=== PATIENT | male | born 1950 | race Caucasian/White ===

== ENCOUNTER 2016-10-15 06:25 | Inpatient (IN) | payer MEDICARE, MEDICAID ==
[~2016-10-15] VITALS: Ht 162.6 cm; Wt 70.3 kg
--- NOTE | 2016-10-15 06:35 | NUR ---
TO BED 5 A 66 YO MALE BIBRA 60 FOR SEIZURE WITNESSED BY , PER RA STATES NOTED PT MOUTH LOCKED, BODY TWITCHING. - N/V OR HEADACHE ON ARRIVAL. PATIENT IS AAOX2, NOTED WITH CONFUSION AND FORGETFULNESS. VSS. BREATHING EVEN AND UNLABORED. DENIES ANY PAIN OR DISCOMFORT. REORIENTATION DONE. SEIZURE PRECAUTIONS INITIATED. MAINTAINED SAFETY. AWAITING FOR ER MD GOODSON.
--- NOTE | 2016-10-15 06:44 | NUR ---
PERFUME COMPOUNDER AT BEDSIDE TO DRAW BLOOD.
[2016-10-15] MEDS ORDERED: IV SET PRIMARY 1 EA INFUS.SET MC ONE (06:48)
[2016-10-15] MEDS ORDERED: IV NS 0.9% 1,000 ML ONE (06:48)
[2016-10-15] MEDS ORDERED: IV NS 0.9% 1,000 ML BAG IV ONE (07:00)
[2016-10-15 07:02] LABS: BASOPHILS % (AUTO) 0.4 % (0.0-2.0); EOSINOPHILS # (AUTO) 0.1 /CMM (0.0-0.7); EOSINOPHILS % (AUTO) 1.5 % (0.0-6.0); HEMATOCRIT 48 % (39-51); HEMOGLOBIN 16.9 g/dL (13.5-17.5); LYMPHOCYTES # (AUTO) 1.1 /CMM (0.8-4.8); LYMPHOCYTES % (AUTO) 20.4 % (20.0-44.0); MEAN CORPUSCULAR HEMOGLOBIN 33 PG (26.0-33.0); MEAN CORPUSCULAR HGB CONC 35 g/dl (31.0-36.0); MEAN CORPUSCULAR VOLUME 96 fL (80-96); MONOCYTES # (AUTO) 0.5 /CMM (0.1-1.30); MONOCYTES % (AUTO) 8.7 % (2.0-12.0); NEUTROPHILS # (AUTO) 3.6 /CMM (1.8-8.9); PLATELET COUNT (AUTO) 107 /CMM (150-450); RDW COEFFICIENT OF VARIATION 13.8 (11.5-15.0); RED BLOOD CELL COUNT(AUTO) 5.05 MIL/uL (4.5-6.0); WHITE BLOOD COUNT (AUTO) 5.2 K/uL (4.3-11.0)
[2016-10-15 07:18] LABS: ALANINE AMINOTRANSFERASE 55 U/L (12-78); ALKALINE PHOSPHATASE 48 U/L (46-116); ASPARTATE AMINOTRANSFERASE 64 U/L (15-37); BILIRUBIN,DIRECT 0.2 mg/dL (0.0-0.2); BILIRUBIN,TOTAL 0.9 mg/dL (0.2-1.0); CALCIUM, SERUM 8.9 mg/dL (8.5-10.1); CARBON DIOXIDE 27 mmol/L (21-32); CHLORIDE 101 mmol/L (98-107); GFR 74 mL/min (>60); GLUCOSE 203 mg/dL (74-106); POTASSIUM 3.9 mmol/L (3.5-5.1); SODIUM SERUM 140 mmol/L (136-145); TOTAL PROTEIN, SERUM 7.6 g/dL (6.4-8.2); UREA NITROGEN, BLOOD 9 mg/dL (7-18)
[2016-10-15 07:19] LABS: PROTHROMBIN TIME 10.7 SECS (9.5-12.7)
[2016-10-15 07:20] LABS: ALCOHOL, BLOOD < 3 mg/dL (0-0)
--- NOTE | 2016-10-15 07:30 | NUR ---
RECEIVED REPORT FROM LUIS FOR JULIANA
--- NOTE | 2016-10-15 07:30 | NUR ---
ENDORSED CARE TO ARNAV SHORT.
--- NOTE | 2016-10-15 07:58 | NUR ---
URINE SAMPLE COLLECTED SENT TO LAB
[2016-10-15 08:06] LABS: APPEARANCE,URINE CLEAR (CLEAR); BILIRUBIN,URINE NEGATIVE (NEGATIVE); BLOOD, URINE TRACE-INTA Ery/uL (NEGATIVE); COLOR,URINE YELLOW (YELLOW); KETONES,URINE NEGATIVE (NEGATIVE); LEUKOCYTE ESTERASE ,URINE NEGATIVE (NEGATIVE); NITRITE, URINE NEGATIVE (NEGATIVE); PROTEIN,URINE 1+ mg/dl (NEGATIVE); UGLUCOSE NEGATIVE (NEGATIVE); UROBILINOGEN,URINE 0.2 EU/dL (0.2)
[2016-10-15 08:16] LABS: ADD URINE CULTURE NO; BACTERIA,URINE Rare /HPF (None Seen); MUCUS,URINE Few /LPF (None Seen); SQUAMOUS EPITHELIAL CELL,UR Few /HPF (None Seen); WBC,URINE 0-3 /HPF (0-3)
[2016-10-15] MEDS ORDERED: LORAZEPAM INJ 2 MG/ML VIAL IV ONE (08:30)
[2016-10-15] MEDS ORDERED: Thiamine 100 MG in IV D5W 50 ML IV SCH (08:30)
--- NOTE | 2016-10-15 08:30 | NUR ---
[facility] paged, dr. coreas nurse practitioner manager [phone]
[2016-10-15] MEDS ORDERED: IV SET PRIMARY PUMP SET 1 EA INFUS.SET MC ONE ×2 (08:41→12:51)
[2016-10-15] MEDS ORDERED: AMLO10TA2 PO (08:41)
[2016-10-15] MEDS ORDERED: LORAZEPAM INJ 2 MG/ML VIAL ONE (08:41)
--- NOTE | 2016-10-15 09:01 | NUR ---
GAVE REPORT TO BRIDGETTE SHORTBINDER TECHNICIAN DX SEIZURE. TRANSFER VIA ACLS PROTOCOL.
[2016-10-15 09:52] VITALS: BP 162/91
--- NOTE | 2016-10-15 09:53 | NUR ---
RN ADMITTING NOTES RECEIVED REPORT FROM CARE TAKER, ARNAV. PATIENT ARRIVED TO UNIT AT 9:25AM. ALERT AND ORIENTED TO NAME, TIME AND PLACE. NO SIGNS AND SYMPTOMS OF DISTRESS. DENIED PAIN. IV SITE IS INTACT AND PATENT. SIDE RAILS COVERED WITH BLANKET FOR SEIZURE PRECAUTION. VITAL SIGNS WERE DOCUMENTED. NO PERSONAL BELONGING AT TIME OF ADMISSION.
[2016-10-15] MEDS ORDERED: LORAZEPAM INJ 2 MG/ML VIAL IV PRN (12:30)
[2016-10-15] MEDS ORDERED: ACETAMINOPHEN 325 MG TABLET PO PRN (12:30)
[2016-10-15] MEDS ORDERED: HYDROCODONE/APAP 5/325MG 1 EACH TABLET PO PRN (12:30)
[2016-10-15] MEDS ORDERED: ZOLPIDEM TARTRATE 5 MG TABLET PO PRN (12:30)
[2016-10-15] MEDS ORDERED: Z GUARD REMEDY 2 OZ OINT TP PRN (12:30)
[2016-10-15] MEDS ORDERED: ONDANSETRON HCL/PF 4 MG/2 ML VIAL IVP PRN (12:30)
[2016-10-15] MEDS ORDERED: MAG HYDROX/AL HYDROX/SIMETH 30 ML UDC PO PRN (12:30)
[2016-10-15] MEDS ORDERED: MAGNESIUM HYDROXIDE 30 ML UDC PO PRN (12:30)
[2016-10-15] MEDS ORDERED: SECONDARY IV SET 1 EA INFUS.SET MC ONE (12:52)
[2016-10-15] MEDS ORDERED: SET RED CAP 1 EA INFUS.SET MC ONE (12:52)
[2016-10-15] MEDS: IV NS 0.9% 1,000 ML IV PRN (13:20)
[2016-10-15] MEDS: THIAMINE HCL 100 MG TABLET PO SCH (13:20)
[2016-10-15] MEDS: FOLIC ACID 1 MG TABLET PO SCH (13:20)
[2016-10-15] MEDS: ENOXAPARIN SODIUM 40 MG/0.4 ML DISP.SYRIN SQ SCH (13:26)
[2016-10-15] MEDS: LEVOFLOXACIN 500 MG /D5W 100ML 500 MG in PREMIX 1 EA IV SCH (14:03)
[2016-10-15] MEDS: CHLORDIAZEPOXIDE HCL 25 MG CAPSULE PO SCH ×2 (14:29→17:17)
[2016-10-15 16:00] VITALS: BP 159/82
--- NOTE | 2016-10-15 18:32 | NUR ---
RN CLOSING NOTES PATIENT IS ALERT AND ORIENTED TO NAME, PLACE, AND TIME. NO SIGNS AND SYMPTOMS OF DISTRESS. NO SEIZURE DURING MY SHIFT. DENIED PAIN. IV SITE IS INTACT AND PATENT, CURRENTLY RUNNING NS @75ML/HR. ECHO COMPLETED TODAY AT EF 60%. WILL ENDORSE TO CAR WASHER NURSE.
--- NOTE | 2016-10-15 19:25 | NUR ---
TELERN FULLY AWAKE FAMILY JUST LEFT. DENIES ANY DISCOMFORTS FOR NOW. STATES NO NEEDS FOR NOW AND WILL CALL IF NEEDED. NEEDS CONSTANT OBSERVATION FOR ALCOHOL WITHDRAWAL. SAFETY PRECAUTIONS EMPHASIZED, APPEARS TO UNDERSTAND. SR ON THE MONITOR, CONTINUED MONITORING
[2016-10-15 20:00] VITALS: BP 164/84
[2016-10-15] MEDS: hydrALAZINE HCL 25 MG TABLET PO PRN (21:03)
[2016-10-16] VITALS: BP 154/84
[2016-10-16] MEDS: IV NS 0.9% 1,000 ML IV PRN ×2 (02:51→16:46)
--- NOTE | 2016-10-16 03:09 | NUR ---
TELERN SR ON THE MONITOR, PRESENT IVF INFUSING WELL. NO NEEDS MADE CONTINUED MONITORING.
[2016-10-16 04:00] VITALS: BP 169/84
[2016-10-16] MEDS ORDERED: hydrALAZINE HCL 25 MG TABLET ONE (05:37)
[2016-10-16 06:39] LABS: BASOPHILS % (AUTO) 0.3 % (0.0-2.0); EOSINOPHILS # (AUTO) 0.1 /CMM (0.0-0.7); EOSINOPHILS % (AUTO) 0.8 % (0.0-6.0); HEMATOCRIT 41 % (39-51); HEMOGLOBIN 14.3 g/dL (13.5-17.5); LYMPHOCYTES # (AUTO) 0.9 /CMM (0.8-4.8); LYMPHOCYTES % (AUTO) 14.4 % (20.0-44.0); MEAN CORPUSCULAR HEMOGLOBIN 34 PG (26.0-33.0); MEAN CORPUSCULAR HGB CONC 35 g/dl (31.0-36.0); MEAN CORPUSCULAR VOLUME 96 fL (80-96); MONOCYTES # (AUTO) 0.7 /CMM (0.1-1.30); MONOCYTES % (AUTO) 10.5 % (2.0-12.0); NEUTROPHILS # (AUTO) 4.8 /CMM (1.8-8.9); PLATELET COUNT (AUTO) 79 /CMM (150-450); RDW COEFFICIENT OF VARIATION 13.8 (11.5-15.0); RED BLOOD CELL COUNT(AUTO) 4.23 MIL/uL (4.5-6.0); WHITE BLOOD COUNT (AUTO) 6.5 K/uL (4.3-11.0)
--- NOTE | 2016-10-16 06:40 | NUR ---
TELERN REMAINS SR ON THE MONITOR, NO OTHER NEEDS MADE.
[2016-10-16] MEDS: hydrALAZINE HCL 25 MG TABLET PO PRN (06:43)
[2016-10-16 06:57] LABS: CALCIUM, SERUM 8.5 mg/dL (8.5-10.1); CREATININE 0.7 mg/dL (0.6-1.3); MAGNESIUM 1.8 mg/dL (1.8-2.4); PHOSPHORUS 3.2 mg/dL (2.5-4.9); POTASSIUM 3.5 mmol/L (3.5-5.1)
--- NOTE | 2016-10-16 07:26 | NUR ---
RN OPEN NOTES RECEIVED REPORT FROM APPLIANCE MECHANIC NURSE. PATIENT IS IN BED, SLEEPING , AWAKEN FOR CALLING HIS NAME. NO SIGNS AND SYMPTOMS OF DISTRESS.IV SITE IS INTACT AND PATENT. WILL CONTINUE TO MONITOR AND ASSESS PATIENT THROUGHOUT MY SHIFT.
--- NOTE | 2016-10-16 07:50 | NUR ---
SPOKE WITH DR HOWARD REGARDING LOW PLATELET COUNT. AGREED TO HOLD LOVENOX
[2016-10-16] MEDS: CHLORDIAZEPOXIDE HCL 25 MG CAPSULE PO SCH ×3 (07:55→16:46)
[2016-10-16] MEDS: ENOXAPARIN SODIUM 40 MG/0.4 ML DISP.SYRIN SQ SCH (07:55)
[2016-10-16] MEDS: PANTOPRAZOLE 40 MG TABLET.DR PO SCH (07:55)
[2016-10-16] MEDS: FOLIC ACID 1 MG TABLET PO SCH (07:55)
[2016-10-16] MEDS: THIAMINE HCL 100 MG TABLET PO SCH (07:55)
[2016-10-16] MEDS: AMLODIPINE BESYLATE 10 MG TABLET PO SCH (07:55)
[2016-10-16 08:00] VITALS: BP 163/79
[2016-10-16 08:02] LABS: BAND % (MANUAL) 1 % (0.0-5.0); LYMPHOCYTES % (MANUAL) 17 % (16-48); MONOCYTES % (MANUAL) 10 % (0-11.0); NEUTROPHILS % (MANUAL) 72 (42-76); PLATELET ESTIMATE DECREASED
--- NOTE | 2016-10-16 10:04 | NUR ---
RN NOTES SPOKE TO NI, HIS , OVER THE PHONE
[2016-10-16 12:00] VITALS: BP 159/90
[2016-10-16] MEDS: LEVOFLOXACIN 500 MG /D5W 100ML 500 MG in PREMIX 1 EA IV SCH (12:16)
[2016-10-16 16:00] VITALS: BP 151/82
--- NOTE | 2016-10-16 18:49 | NUR ---
RN CLOSING NOTES PATIENT IS ALERT AND ORIENTED TO NAME, TIME AND PLACE. NO SIGNS AND SYMPTOMS OF DISTRESS. DENIED PAIN. IV SITE IS INTACT AND PATENT, CURRENTLY RUNNING NS @75ML/HR. WILL ENDORSE TO PRE PRESS OPERATOR NURSE.
[2016-10-16 20:00] VITALS: BP 147/90
[2016-10-17] VITALS: BP 149/87
[2016-10-17 04:00] VITALS: BP 139/87
--- NOTE | 2016-10-17 06:23 | NUR ---
SYSTEMS SOFTWARE DESIGNER NOTES AWAKE & RESPONSIVE. NOT IN ANY DISTRESS. NO SOB NOTED. DENIES ANY PAIN OR DISCOMFORT AT THIS TIME. ON TELE SR @ 70 WITH IV-HL PATENT & INTACT. MONITORED ACCORDINGLY. CALL LIGHT WITHIN REACH. BED IN LOWEST POSITION. SR UP X 2 FOR SAFETY. WILL ENDORSE TO NEXT SHIFT.
[2016-10-17 06:29] VITALS: BP 166/92
--- NOTE | 2016-10-17 07:09 | NUR ---
RN OPEN NOTES RECEIVED REPORT FROM AGRICULTURAL SERVICE WORKER NURSE. PATIENT IS IN BED, AWAKE. ALERT AND ORIENTED TO NAME, TIME AND PLACE. NO SIGNS AND SYMPTOMS OF DISTRESS.IV SITE IS INTACT AND PATENT. WILL CONTINUE TO MONITOR AND ASSESS PATIENT THROUGHOUT MY SHIFT.
[2016-10-17 08:00] VITALS: BP 171/93
[2016-10-17 08:39] VITALS: BP 171/93
[2016-10-17] MEDS: PANTOPRAZOLE 40 MG TABLET.DR PO SCH (08:39)
[2016-10-17] MEDS: FOLIC ACID 1 MG TABLET PO SCH (08:39)
[2016-10-17] MEDS: THIAMINE HCL 100 MG TABLET PO SCH (08:39)
[2016-10-17] MEDS: AMLODIPINE BESYLATE 10 MG TABLET PO SCH (08:39)
[2016-10-17] MEDS: ENOXAPARIN SODIUM 40 MG/0.4 ML DISP.SYRIN SQ SCH (08:40)
[2016-10-17] MEDS: CHLORDIAZEPOXIDE HCL 25 MG CAPSULE PO SCH ×2 (08:57→12:19)
[2016-10-17] MEDS: LEVOFLOXACIN 500 MG /D5W 100ML 500 MG in PREMIX 1 EA IV SCH (12:22)
[2016-10-17] MEDS ORDERED: LISI10TA5 PO (13:56)
[2016-10-17] MEDS ORDERED: LEVO250T2 PO (13:56)
[2016-10-17] MEDS ORDERED: CHLO25CA22 PO (13:56)
--- NOTE | 2016-10-17 15:15 | NUR ---
BRAND STRATEGIST NOTES PATIENT DISCHARGE ORDER RECEIVED AND CARRIED OUT. PATIENT VERBALIZED UNDERSTANDING OF DISCHARGE ORDERS. PATIENT HAD NO CONCERNS REGARDING DISCHARGE. PATIENT LEFT WITH ALL PERSONAL BELONGING AND FORM SIGNED. PATIENT RECEIVED PRESCRIPTION AT TIME OF DISCHARGE. NO SIGNS AND SYMPTOMS OF DISTRESS. DENIED PAIN. OV SITE REMOVED. OD BAND REMOVED. PATIENT WAS TRANSPORTED HOME VIA PRIVATE CAR ACCOMPANIED BY HIS . NI. I ESCORTED PATIENT DOWN TO LOBBY.
== END 2016-10-17 14:53 | disposition home or self-care (01) | DRG 896 ==
LOC: ER 06:27 → MED 09:01 → TELE 11:58 → MED 10-17 09:07
PROVIDERS: ADMIT Internal Medicine; ATTEND Internal Medicine
DX: F10.239 Alcohol dependence with withdrawal, unspecified (principal); J69.0 Pneumonitis due to inhalation of food and vomit; G91.2 (Idiopathic) normal pressure hydrocephalus; E78.5 Hyperlipidemia, unspecified; F03.90 Unspecified dementia, unspecified severity, without behavioral disturbance, psychotic disturbance, mood disturbance, and anxiety; I10 Essential (primary) hypertension; Z82.49 Family history of ischemic heart disease and other diseases of the circulatory system; G93.89 Other specified disorders of brain; Z87.891 Personal history of nicotine dependence; G40.909 Epilepsy, unspecified, not intractable, without status epilepticus; Y90.0 Blood alcohol level of less than 20 mg/100 ml
CPT/HCPCS: 36415; 70450-TC; 71010-TC; 80048-TC; 80061-TC; 80076-TC; 81000-TC; 82746; 83735-TC; 84100-TC; 85025-TC; 85730-TC; 87040-TC; 87081-TC; 87086-TC; 93307-TC; A4216; A4606; G0480; J1650; J1956; J2060; J3411; J7030; J7060; Z7610

== ENCOUNTER 2017-04-18 09:30 | Emergency (ER) | payer MEDICARE, MEDICAID ==
[~2017-04-18] VITALS: Ht 167.6 cm; Wt 71.2 kg
[~2017-04-18 09:30] MED LIST: AMLO10TA2 PO; CHLO25CA22 PO; LEVO250T2 PO; LISI10TA5 PO
--- NOTE | 2017-04-18 09:35 | NUR ---
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 PATIENT TOOK 10MG AMLODIPINE 1HR AGO. CURRENT BP IS 154/79. RR IS EVEN AND UNLABORED WITH NAD NOTED. SKIN IS WARM AND DRY. ASSISTED TO HOSPITAL GOWN. PLACED ON MONITOR.
--- NOTE | 2017-04-18 09:43 | NUR ---
DR MACKAY AT BEDSIDE FOR EVALUATION.
[2017-04-18 09:59] VITALS: BP 151/69
--- NOTE | 2017-04-18 09:59 | NUR ---
Patient discharged to home in stable condition. Written and verbal after care instructions given. Patient and family member verbalizes understanding of instruction.
== END 2017-04-18 10:01 | disposition home or self-care (01) ==
LOC: ER 09:32
DX: F41.9 Anxiety disorder, unspecified (principal); F10.10 Alcohol abuse, uncomplicated; I10 Essential (primary) hypertension; F03.90 Unspecified dementia, unspecified severity, without behavioral disturbance, psychotic disturbance, mood disturbance, and anxiety; Z91.14 Patient's other noncompliance with medication regimen
CPT/HCPCS: 99284; A4606; Z7610

== ENCOUNTER 2017-08-22 10:20 | Emergency (ER) | payer MEDICARE, MEDICAID ==
[~2017-08-22] VITALS: Ht 180.3 cm; Wt 64.6 kg
[~2017-08-22 10:20] MED LIST changes: -AMLO10TA2 PO; +AMLO10TA6 PO
--- NOTE | 2017-08-22 10:20 | NUR ---
BB CAREGIVER FOR DIZZINESS SINCE THIS AM, [facility]. PT DENIES CHEST PAIN AND SOB. ALCOHOL CONSUMPTION YESTERDAY. PER CAREGIVER, PT HAS A H/O ALCOHOL INDUCED SZ. NAD. RR EVEN AND UNLABORED. SKIN IS WARM AND NON DIAPHORETIC. PENDING ER MD EVALUATION
[2017-08-22 11:56] LABS: BASOPHILS % (AUTO) 0.7 % (0.0-2.0); EOSINOPHILS % (AUTO) 0.7 % (0.0-6.0); HEMATOCRIT 45 % (39-51); HEMOGLOBIN 15.9 g/dL (13.5-17.5); LYMPHOCYTES # (AUTO) 1.1 /CMM (0.8-4.8); LYMPHOCYTES % (AUTO) 15.5 % (20.0-44.0); MEAN CORPUSCULAR HGB CONC 35 g/dl (31.0-36.0); MEAN CORPUSCULAR VOLUME 89 fL (80-96); MONOCYTES # (AUTO) 0.2 /CMM (0.1-1.30); MONOCYTES % (AUTO) 3.4 % (2.0-12.0); NEUTROPHILS # (AUTO) 5.6 /CMM (1.8-8.9); NEUTROPHILS % (AUTO) 79.7 % (43.0-81.0); RDW COEFFICIENT OF VARIATION 12.6 (11.5-15.0); RED BLOOD CELL COUNT(AUTO) 5.07 MIL/uL (4.5-6.0); WHITE BLOOD COUNT (AUTO) 6.9 K/uL (4.3-11.0)
[2017-08-22 11:59] LABS: PLATELET COUNT (AUTO) 150 /CMM (150-450)
[2017-08-22 12:04] LABS: CALCIUM, SERUM 9.2 mg/dL (8.5-10.1); CARBON DIOXIDE 31 mmol/L (21-32); CHLORIDE 103 mmol/L (98-107); CREATININE 0.7 mg/dL (0.6-1.3); GLUCOSE 118 mg/dL (74-106); POTASSIUM 3.6 mmol/L (3.5-5.1); SODIUM SERUM 143 mmol/L (136-145); UREA NITROGEN, BLOOD 7 mg/dL (7-18)
[2017-08-22 12:11] LABS: TROPONIN I < 0.017 ng/mL (0.00-0.056)
--- NOTE | 2017-08-22 14:16 | NUR ---
Patient discharged to home in stable condition. Written and verbal after care instructions given. Patient verbalizes understanding of instruction.
[2017-08-22 14:18] VITALS: BP 150/80
== END 2017-08-22 14:20 | disposition home or self-care (01) ==
LOC: ER 10:21
DX: R42 Dizziness and giddiness (principal); I10 Essential (primary) hypertension; F03.90 Unspecified dementia, unspecified severity, without behavioral disturbance, psychotic disturbance, mood disturbance, and anxiety; F10.20 Alcohol dependence, uncomplicated
CPT/HCPCS: 36415; 71045-TC; 80048-TC; 84484-TC; 85025-TC; A4606; Z7610

== ENCOUNTER 2019-01-30 15:57 | Emergency (ER) | payer MEDICAID, MEDICARE ==
[~2019-01-30] VITALS: Ht 170.2 cm; Wt 72.6 kg
[~2019-01-30 15:57] MED LIST changes: -AMLO10TA6 PO; +AMLO10TA7 PO
--- NOTE | 2019-01-30 16:30 | NUR ---
HARMAN RA 860 "was on an escalator- witness saw him fall forward" BS-100. ABRASIONS TO RIGHT SIDE OF FACE AND RIGHT ARM. APPEARS SLIGHTLY CONFUSED, UNSURE IF DUE TO LANGUAGE BARRIER, INJURY, OR IF THIS IS HIS BASELINE. UNABLE TO OBTAIN FURTHER INFO, PT ASKED TO BE LEFT ALONE. NO ACUTE DISTRESS NOTED. READY FOR EVAL.
--- NOTE | 2019-01-30 16:58 | NUR ---
PT TAKEN TO RADIOLOGY VIA ARTHUR
--- NOTE | 2019-01-30 19:23 | NUR ---
Patient discharged to home in stable condition, WALKS WITH STEADY GAIT. Written and verbal after care instructions given. Patient verbalizes understanding of instruction, REFUSES TO TAKE D/C PAPERS
[2019-01-30 19:27] VITALS: BP 107/62
== END 2019-01-30 19:28 | disposition home or self-care (01) ==
LOC: ER 16:00
DX: S00.81XA Abrasion of other part of head, initial encounter (principal); S40.811A Abrasion of right upper arm, initial encounter; F10.129 Alcohol abuse with intoxication, unspecified; R41.0 Disorientation, unspecified; F03.90 Unspecified dementia, unspecified severity, without behavioral disturbance, psychotic disturbance, mood disturbance, and anxiety; I10 Essential (primary) hypertension; Z79.899 Other long term (current) drug therapy; W18.39XA Other fall on same level, initial encounter; Y93.89 Activity, other specified; Y92.89 Other specified places as the place of occurrence of the external cause; Y99.8 Other external cause status; Y90.8 Blood alcohol level of 240 mg/100 ml or more
CPT/HCPCS: 36415; 70450-TC; 82962-TC; G0480